=== PATIENT | female | born 1940 | race Caucasian/White ===

== ENCOUNTER 2018-03-07 08:52 | Day surgery (SDC) | payer MEDICARE, OTHER ==
[~2018-03-07] VITALS: Ht 157.5 cm; Wt 54.6 kg
[2018-03-07] MEDS ORDERED: normal saline 1000ml 1,000 ML IV SCH ×2 (09:20→11:30)
[2018-03-07] MEDS ORDERED: ATOR10TA87 PO (09:45)
[2018-03-07] MEDS ORDERED: PANT-47 PO (09:45)
[2018-03-07] MEDS ORDERED: LORA10TA65 PO (09:45)
[2018-03-07] MEDS ORDERED: OCUVITE PO (09:45)
[2018-03-07] MEDS ORDERED: METO100T14 PO (09:45)
[2018-03-07] MEDS ORDERED: HYDR500C18 PO (09:45)
[2018-03-07] MEDS ORDERED: CHOL10002 PO (09:45)
[2018-03-07] MEDS ORDERED: CYAN250014 PO (09:45)
[2018-03-07] MEDS ORDERED: AMLO5TAB PO (09:45)
[2018-03-07] MEDS ORDERED: HYDR12.55 PO (09:45)
[2018-03-07] MEDS ORDERED: CLON-529 PO (09:45)
[2018-03-07] MEDS ORDERED: TERIPARATIDE INJ (09:45)
[2018-03-07] MEDS ORDERED: TERA5CAP4 PO (09:45)
[2018-03-07] MEDS ORDERED: POTA20TA19 PO (09:45)
[2018-03-07 10:11] LABS: BASOPHILS % (AUTO) 0.3 % (0-1); EOSINOPHILS # (AUTO) 0.2 X10'3 (0-0.9); EOSINOPHILS % (AUTO) 1.9 % (0-6); LYMPHOCYTES # (AUTO) 0.6 X10'3 (1.1-4.8); LYMPHOCYTES % (AUTO) 6.1 % (21-51); MEAN CORPUSCULAR HEMOGLOBIN 36.1 PG (27.0-31.0); MEAN CORPUSCULAR HGB CONC 33.6 % (33.0-36.5); MEAN CORPUSCULAR VOLUME 107.6 FL (78-98); MONOCYTES # (AUTO) 0.5 X10'3 (0-0.9); MONOCYTES % (AUTO) 5.3 % (2-12); NEUTROPHILS % (AUTO) 86.4 % (42-75); PRE OP HEMATOCRIT 42.9 % (35.0-45.0); PRE OP HEMOGLOBIN 14.4 g/dL (12.0-16.0); PRE OP PLATELET COUNT 346 X10'3 (140-440); RED BLOOD COUNT 3.98 X10'6 (4.20-5.60); RED CELL DISTRIBUTION WIDTH 14.9 % (11.5-14.5)
[2018-03-07 10:15] VITALS: BP 139/59
[2018-03-07 10:21] LABS: ALBUMIN 3.9 G/DL (3.4-5.0); ANION GAP 10 (8-16); BLOOD UREA NITROGEN 26 MG/DL (7-18); BUN/CREATININE RATIO 18.4 (6.6-38.0); CALCIUM 9.6 MG/DL (8.5-10.1); CHLORIDE 101 MMOL/L (99-107); CREATININE 1.41 MG/DL (0.40-0.90); GLUCOSE 172 MG/DL (70-104); POTASSIUM 3.5 MMOL/L (3.5-5.1); SODIUM 140 MMOL/L (135-145); TOTAL CARBON DIOXIDE 29.5 MMOL/L (24-32); eGFR 36 ML/MIN
[2018-03-07] MEDS ORDERED: fentaNYL/PF 50MCG/1 ML 2ML syringe IV PRN (11:30)
[2018-03-07] MEDS ORDERED: heparin sodium, porcine/PF 100unit/ml 5ML syringe ICATH ONE (11:30)
[2018-03-07] MEDS ORDERED: midazolam 2 mg/2 ml injection IV PRN (11:30)
[2018-03-07] MEDS ORDERED: LIDOcaine 1%/PF 5ML 10 MG/ML VIAL SQ ONE (11:30)
[2018-03-07] MEDS ORDERED: heparin sodium, porcine/PF 100unit/ml 5ML syringe ONE (11:47)
[2018-03-07] MEDS ORDERED: fentaNYL/PF 50MCG/1 ML 2ML syringe ONE (11:48)
[2018-03-07] MEDS ORDERED: LIDOcaine 1% (10mg/ml) 2ml vial ONE (11:48)
[2018-03-07] MEDS ORDERED: midazolam 2 mg/2 ml injection ONE (11:48)
[2018-03-07] MEDS ORDERED: ondansetron/PF 4mg/2ml inj ONE (11:51)
[2018-03-07 12:41] VITALS: BP 119/51
[2018-03-07 12:57] VITALS: BP 123/54
[2018-03-07 13:11] VITALS: BP 115/56
== END 2018-03-07 13:40 | disposition home or self-care (01) ==
LOC: SSTAY O 08:52
PROVIDERS: ATTEND Radiology Vascular & Interventional Radiology
DX: C15.5 Malignant neoplasm of lower third of esophagus (principal); I10 Essential (primary) hypertension; E11.9 Type 2 diabetes mellitus without complications; E78.5 Hyperlipidemia, unspecified; D47.3 Essential (hemorrhagic) thrombocythemia; Z88.0 Allergy status to penicillin; Z88.2 Allergy status to sulfonamides; Z88.6 Allergy status to analgesic agent; Z79.899 Other long term (current) drug therapy; Z90.49 Acquired absence of other specified parts of digestive tract; Z98.890 Other specified postprocedural states
CPT/HCPCS: 36415; 36561; 76937; 77001; 80048; 85025; 99152; 99153; J1642; J2250; J2405; J3010; J3490; J7030; A6219; C1788; C1894